=== PATIENT | female | born 1965 | race Caucasian/White ===

== ENCOUNTER 2019-12-21 13:50 | Emergency (ER) | payer BC, SELFPAY ==
--- NOTE | ~2019-12-21 | XR_ITS ---
EXAMINATION: XR chest 2V DATE: 12/21/2019 15:18 INDICATION: Anterior right chest pain TECHNIQUE: PA and lateral views of the chest were obtained. COMPARISON: Chest radiograph dated 12/13/2014 FINDINGS: Small suture line at the posterior left lung base. Lungs otherwise clear with no focal airspace opaci ties, pulmonary edema, pleural effusion or pneumothorax. The cardiomediastinal silhouette is normal. Thoracic kyphosis with minimal chronic anterior wedging of a few mid thoracic vertebral bodies. Moder ate thoracic spondylosis. IMPRESSION: 1. No acute cardiopulmonary disease. Reviewed, dictated and finalized at location A. SPECIALIST
[2019-12-21 14:00] VITALS: BP 219/119; PULSE 100; RESP 18; TEMP 36.7; O2SAT 100
--- NOTE | 2019-12-21 14:10 | ECG_ITS ---
Measurements Intervals [place] Rate: 98 P: 56 WI: 157 QRS: 64 QRSD: 96 T: 64 QT: 377 QTc: 482 Interpretive Statements SINUS RHYTHM BORDERLINE R WAVE PROGRESSION, ANTERIOR LEADS BORDERLINE ST ABNORMALITY- INFERIOR LEADS BORDERLINE ECG Electronically Signed On 12-21-2019 14:40:03 STAFF DEVELOPMENT MANAGER by Gerardo Alcaraz D.O.
--- NOTE | 2019-12-21 14:16 | ED.CHESTPAIN ---
HPI - Chest Pain General Chief Complaint: Chest Pain Stated Complaint: chest congestion thinks might be plurisy Time Seen by Provider: 12/21/19 14:06 Source: patient and RN notes reviewed Mode of arrival: ambulatory Limitations: no limitations History of Present Illness HPI narrative: 54-year-old female with no past cardiac history has been having right-sided chest pain for the last 4-5 days. She states she has been having sweating but that is constant. She has been short of breath with worsening pain on the right side with deep breaths. She denies any nausea vomiting. She denies any radiation. The pain in the right chest is worse with movement. She states it is an 8/10. complaint: chest pain (Right) Onset (ago): day(s) (4-5) Timing of current episode: constant Prior episodes: Yes Onset: during rest Pain location: right chest Pain radiation: none Pain scale (0-10): 8 Quality: aching and dull Relieving factors: nothing Exacerbating factors: inspiration and movement Associated symptoms: diaphoresis and dyspnea Treatment prior to arrival: none Risk Factors Coronary artery disease risk factors: hypertension Thoracic aortic dissection risk factors: none Related Data On Oral Contraceptives: No Home Medications Medication Instructions Recorded Confirmed lisinopril-hydrochlorothiazide 1 tablet PO DAILY 12/21/19 12/21/19 Allergies Allergy/AdvReac Type Severity Reaction Status Date / Time iron Allergy Severe seizures Verified 12/13/14 14:36 Review of Systems Review of Systems: All systems reviewed & are unremarkable except as noted in HPI and below PMFSH Past Medical History Medical History (Updated 12/21/19 @ 15:33 by Keyur Rose MD) Chronic back pain Hypertension Pleurisy Surgical History Surgical History (Updated 12/21/19 @ 15:03 by Keyur Rose MD) H/O: hysterectomy History of lung surgery Hx of cholecystectomy Hx of tonsillectomy Family History Family History (Updated 12/21/19 @ 15:04 by Keyur Rose MD) Mother Lung cancer Hypertension Social History Social History Smoking status: Never smoker Gender identity (if verbalized by the patient): Female Exam Const: General: healthy appearing, no acute distress and alert Nutritional Appearance: obese Orientation/consciousness: patient oriented x3 HENMT: Head: normal to inspection Ears: external ears normal Face and sinus: normal facial exam Eyes: Conjunctivae: conjunctivae normal Pupils: Equal, round and reactive pupils present EOM: EOMs intact bilaterally Neck: Neck: normal visual inspection Chest: Chest palpation & inspection: tenderness costal cartilage right mid-clavicular line involving the 5th-6th rib, involving the 6th-7th rib, involving the 7th-8th rib and involving the 8th-9th rib Resp: Effort & Inspection: normal respiratory effort Auscultation: clear to auscultation bilaterally Cardio: Rate: regular rate Rhythm: regular rhythm GI: Auscultation: normal bowel sounds Skin: General skin exam: normal color Rashes: no rashes Neuro: General: patient oriented x3, moves all extremities and no focal motor deficits Speech: normal speech Extrem: General: normal to inspection and edema bilateral Psych: Appearance: grossly normal and well kempt Mental Status: mental status grossly normal Affect: normal affect Attitude: cooperative Thought content: Yes Normal thought content present Course Vital Signs Vital signs: Vital Signs Temperature 36.7 C 12/21/19 14:00 Pulse Rate 100 12/21/19 14:00 Respiratory Rate 18 12/21/19 14:00 Blood Pressure 219/119 H 12/21/19 14:00 Pulse Oximetry 100 12/21/19 14:00 Temperature 36.7 C 12/21/19 14:00 Pulse Rate 90 12/21/19 15:42 Respiratory Rate 18 12/21/19 15:42 Blood Pressure 187/106 H 12/21/19 15:42 Pulse Oximetry 98 12/21/19 15:42 MDM - Chest Pain Differential Diagnosis Dif
--- NOTE | 2019-12-21 14:25 | PC.NURSE ---
Spoke with Dr Simpson by phone to clarify pt's home medications. Updated with pt c/o and current condition.
[2019-12-21 14:40] VITALS: BP 198/110; PULSE 91; RESP 18; O2SAT 98
[2019-12-21 14:53] LABS: Basophils Absolute Auto 0.06 K/mm3 (0.00-0.10); Basophils Percent Auto 0.4 % (0.0-1.0); Eosinophils Absolute Auto 0.32 K/mm3 (0.02-0.50); Eosinophils Percent Auto 2.2 % (1.0-6.0); Hematocrit 42.5 % (35.0-49.0); Hemoglobin 13.7 g/dL (12.0-15.0); Immature Granulocyte Absolute 0.06 K/mm3 (0.00-0.00); Immature Granulocyte Percent A 0.4 % (0.0-0.0); Lymphocytes Absolute Auto 3.08 K/mm3 (1.10-4.50); Lymphocytes Percent Auto 21.6 % (18.0-42.0); Mean Corpuscular HGB Conc 32.2 g/dL (32.0-36.0); Mean Corpuscular Hemoglobin 28.4 pg (27.0-31.0); Mean Corpuscular Volume 88.2 fL (78.0-102.0); Mean Platelet Volume 8.9 fl (9.2-11.8); Neutrophils Absolute Auto 9.8 K/mm3 (1.7-7.2); Neutrophils Percent Auto 68.4 % (50.0-70.0); Platelet Count Result 341 K/mm3 (150-420); Red Blood Count 4.82 M/mm3 (4.20-5.40); Red Cell Distribution Width 13.3 % (11.6-14.4); White Blood Count 14.3 K/mm3 (4.8-10.8)
[2019-12-21 15:06] LABS: Prothrombin Time 10.5 Seconds (9.64-11.0)
[2019-12-21 15:12] VITALS: BP 187/106; PULSE 94; RESP 18; O2SAT 96
[2019-12-21 15:13] LABS: Alanine Aminotransferase 17 U/L (14-59); Albumin Level 3.6 g/dL (3.4-5.0); Alkaline Phosphatase 98 U/L (46-116); Anion Gap 13.1 mmol/L (7-16); Aspartate Amino Transferase 13 U/L (15-37); Bilirubin,Total 0.3 mg/dL (0.00-1.00); Blood Urea Nitrogen 10 mg/dL (7-18); Calcium 9.2 mg/dL (8.5-10.1); Carbon Dioxide 28 mmol/L (21-32); Chloride 104 mmol/L (98-108); Estimated CRCL calculation 117 ml/min; Estimated Glomerular Filt Rate > 60; Glucose 89 mg/dL (70-99); Osmolality Calculated 290 mOsm/kg (285-295); Potassium 4.1 mmol/L (3.5-5.1); Sodium 141 mmol/L (136-145); Total Protein 8.5 g/dL (6.4-8.2); Troponin I < 0.02 ng/mL (0.00-0.056)
[2019-12-21 15:14] LABS: CRP 4.3 mg/dL (0.0-0.9)
[2019-12-21] MEDS: methylPREDNISolone SOD SUCC 125 MG VIAL IV PUSH (15:34)
[2019-12-21 15:42] VITALS: BP 187/106; PULSE 90; RESP 18; O2SAT 98
== END 2019-12-21 15:45 | disposition home or self-care (01) ==
PROVIDERS: Emergency Provider Emergency Medicine; PCP Internal Medicine
DX: R09.1 Pleurisy (principal)
CPT/HCPCS: 36415; 71046; 80053; 83880; 84484; 85025; 85610; 86140; 93005; 96374; 99284; J2930

== ENCOUNTER 2021-12-03 09:04 | Emergency (ER) | payer BC, SELFPAY ==
--- NOTE | ~2021-12-03 | XR_ITS ---
EXAMINATION: XR chest 1V portable 12/03/2021 11:20 INDICATION: Cough and shortness of breath PROCEDURE: AP portable chest COMPARISON: Comparison to multiple prior studies sequentially, with oldest reviewed study dated 02/2012. FINDINGS: The lungs are clear. The cardiomediastinal silhouette is within normal limits. There are no pleural effusions. There is no pneumothorax suspected. IMPRESSION: 1: NO ACUTE CARDIOPULMONARY DISEASE. Reviewed, dictated and finalized at location B. M TENDER
[2021-12-03 09:15] VITALS: BP 218/116; PULSE 92; RESP 20; TEMP 36.3; O2SAT 96
--- NOTE | 2021-12-03 09:45 | ED.URI ---
HPI - URI/Sore Throat History of Present Illness HPI Narrative: 56-year-old female, nonsmoker with a history of obesity, hypertension, chronic low back pain, pleurisy presented to the ER with a 4 day history of -- cough which is productive of yellow sputum -- shortness of breath -- fever with a T-max of 100.4? patient is not COVID vaccinated. Her daughter had COVID. Patient's symptoms are similar to an episode of pneumonia which she had many years ago. Patient had a section of a benign nodule trauma chest many years ago MD elicited complaint: fever and cough Pertinent past history: pneumonia Onset (ago): day(s) ( 4 days) Consistency: constant Description of mucous: yellow Exacerbating factors: exertion Relieving factors: nothing Context: sick contacts Associated symptoms: fever Related Data Home Medications Medication Instructions Recorded Confirmed lisinopril-hydrochlorothiazide 1 tablet PO DAILY 12/21/19 12/03/21 amlodipine 5 mg tablet 10 mg PO DAILY 03/26/21 12/03/21 gabapentin 300 mg PO DAILY 12/03/21 12/03/21 hydrocodone-acetaminophen 1 tablet PO DIRECTED 12/03/21 12/03/21 Allergies Allergy/AdvReac Type Severity Reaction Status Date / Time iron Allergy Severe seizures Verified 12/13/14 14:36 Review of Systems Review of Systems: All systems reviewed & are unremarkable except as noted in HPI and below Constitutional: Constitutional: Reports as per HPI and Reports fever(s) Eyes: Eyes: Reports no additional eye complaints ENT: Reports system reviewed and no additional complaints, except as documented Cardiovascular: Cardiovascular: Reports no additional cardiovascular complaints Comments: patient is noted to be hypertensive with a blood pressure of 218/116. patient stated that whenever she walks she becomes hypertensive. Respiratory: Respiratory: Reports chest congestion, Reports cough and Reports dyspnea Gastrointestinal: Gastrointestinal: Reports no additional gastrointestinal complaints Genitourinary: Genitourinary: Reports no additional female genitourinary complaints Musculoskeletal: Musculoskeletal: Reports no additional musculoskeletal complaints Integumentary/Breasts: Skin/Breast: Reports system reviewed and no additional complaints, except as docu Neurologic: Reports system reviewed and no additional complaints, except as documented Psychiatric: Psychiatric: Reports no additional psychiatric complaints Endocrine: Endocrine: Reports no additional endocrine complaints Hematologic/Lymphatic: Hematologic/Lymphatic: Reports no additional hematologic/lymphatic complaints Allergic/Immunologic: Allergic/Immunologic: Reports no additional allergic/immunologic complaints [facility] Past Medical History Medical History Chronic back pain Degenerative arthritis of knee, bilateral Hypertension Pleurisy Surgical History Surgical History H/O: hysterectomy History of lung surgery Hx of cholecystectomy Hx of tonsillectomy Family History Family History Mother Lung cancer Hypertension Social History Social History Smoking status: Never smoker Substance use: current 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 HENMT: Head: normal to inspection Eyes: Conjunctivae: conjunctivae normal Pupils: Equal, round and reactive pupils present EOM: EOMs intact bilaterally Neck: Neck: normal visual inspection and no lymphadenopathy Chest: Chest palpation & inspection: normal inspection of the chest Resp: Effort & Inspection: normal respiratory effort Auscultat
--- NOTE | 2021-12-03 10:00 | ECG_ITS ---
Measurements Intervals [place] Rate: 83 P: 22 [place]: 146 QRS: 42 QRSD: 98 T: 49 QT: 391 QTc: 460 Interpretive Statements SINUS RHYTHM POOR R WAVE PROGRESSION, ANTERIOR LEADS BASELINE ARTIFACT- I, II, III, AVR, AVL, AVF BORDERLINE ECG Electronically Signed On 12-03-2021 10:32:00 CERTIFIED PROFESSIONAL ERGONOMIST by Gerardo Alcaraz D.O.
[2021-12-03] MEDS: cloNIDine HCL 0.1 MG TABLET PO (10:13)
[2021-12-03 10:23] LABS: Basophils Absolute Auto 0.02 K/mm3 (0.00-0.10); Basophils Percent Auto 0.4 % (0.0-1.0); Eosinophils Absolute Auto 0.16 K/mm3 (0.02-0.50); Eosinophils Percent Auto 2.9 % (1.0-6.0); Hematocrit 42.5 % (35.0-49.0); Hemoglobin 13.3 g/dL (12.0-15.0); Immature Granulocyte Absolute 0.01 K/mm3 (0.00-0.00); Immature Granulocyte Percent A 0.2 % (0.0-0.0); Lymphocytes Absolute Auto 2.11 K/mm3 (1.10-4.50); Lymphocytes Percent Auto 38.9 % (18.0-42.0); Mean Corpuscular HGB Conc 31.3 g/dL (32.0-36.0); Mean Corpuscular Hemoglobin 27.9 pg (27.0-31.0); Mean Corpuscular Volume 89.3 fL (78.0-102.0); Mean Platelet Volume 9.4 fl (9.2-11.8); Monocytes Absolute Auto 0.63 K/mm3 (0.10-0.90); Monocytes Percent Auto 11.6 % (2.0-11.0); Neutrophils Absolute Auto 2.5 K/mm3 (1.7-7.2); Platelet Count Result 257 K/mm3 (150-420); Red Blood Count 4.76 M/mm3 (4.20-5.40); Red Cell Distribution Width 13.1 % (11.6-14.4); White Blood Count 5.4 K/mm3 (4.8-10.8)
[2021-12-03 10:36] LABS: D Dimer 0.34 mg/L (0.19-0.50)
[2021-12-03 10:42] VITALS: BP 171/94; PULSE 77; RESP 20; O2SAT 95
[2021-12-03 10:44] LABS: Alanine Aminotransferase 56 U/L (14-59); Albumin Level 3.5 g/dL (3.4-5.0); Alkaline Phosphatase 88 U/L (46-116); Anion Gap 4 mmol/L (8-16); Aspartate Amino Transferase 36 U/L (15-37); Bilirubin,Total 0.2 mg/dL (0.00-1.00); Blood Urea Nitrogen 10 mg/dL (7-18); Calcium 8.9 mg/dL (8.5-10.1); Carbon Dioxide 34 mmol/L (21-32); Chloride 101 mmol/L (98-108); Estimated CRCL calculation 117 ml/min; Estimated Glomerular Filt Rate > 60; Glucose 94 mg/dL (70-99); NT Pro B Type Natriuretic Pept 82 pg/mL (0-125); Osmolality Calculated 287 mOsm/kg (285-295); Potassium 4.1 mmol/L (3.5-5.1); Sodium 139 mmol/L (136-145); Total Protein 7.7 g/dL (6.4-8.2); Troponin I 10.8 ng/L (0.00-60.4)
[2021-12-03 10:56] LABS: SARS-CoV-2 RNA PCR Positive (Negative)
[2021-12-03 11:31] VITALS: BP 164/91; PULSE 83; RESP 20; TEMP 36.3; O2SAT 93
== END 2021-12-03 12:04 | disposition home or self-care (01) ==
PROVIDERS: Emergency Provider Internal Medicine Critical Care Medicine; PCP Nurse Practitioner Psychiatric/Mental Health
DX: U07.1 COVID-19 (principal); I10 Essential (primary) hypertension
CPT/HCPCS: 36415; 71045; 80053; 83880; 84484; 85025; 85380; 93005; 99283; 99284; A9270; C9803; U0003; U0005

== ENCOUNTER 2021-12-06 10:13 | Outpatient (RCR) | payer BC, SELFPAY ==
[2021-12-06] MEDS: diphenhydrAMINE HCl CAP 25 MG CAPSULE PO (11:00)
[2021-12-06] MEDS: FAMOTIDINE 20 MG TABLET PO (11:00)
[2021-12-06] MEDS: ACETAMINOPHEN 325 MG TABLET 650 MG PO (11:00)
[2021-12-06 11:04] VITALS: BP 161/115; PULSE 101; TEMP 35.9; O2SAT 96
[2021-12-06 12:28] VITALS: BP 156/98; PULSE 88; O2SAT 97
== END 2021-12-06 16:00 ==
LOC: AMCINF 10:13
PROVIDERS: Visit Provider Internal Medicine Hematology & Oncology
DX: U07.1 COVID-19 (principal); I10 Essential (primary) hypertension
CPT/HCPCS: A9270; M0247; Q0247